=== PATIENT | male | born 1970 | race Two or more races ===

== ENCOUNTER 2019-12-07 09:20 | Emergency (ER) | payer MEDICAID, OTHER ==
[~2019-12-07] VITALS: Ht 170.2 cm; Wt 83.9 kg
[2019-12-07 10:14] VITALS: BP 146/98
== END 2019-12-07 10:51 | disposition home or self-care (01) ==
LOC: ER 09:20
DX: K21.9 Gastro-esophageal reflux disease without esophagitis (principal); I10 Essential (primary) hypertension; F17.210 Nicotine dependence, cigarettes, uncomplicated; Z76.0 Encounter for issue of repeat prescription

== ENCOUNTER 2019-12-27 10:13 | Emergency (ER) | payer MEDICAID ==
[~2019-12-27] VITALS: Ht 167.6 cm; Wt 83.5 kg
[2019-12-27 10:21] VITALS: BP 139/91
== END 2019-12-27 12:29 | disposition home or self-care (01) ==
LOC: ER 10:13
DX: G89.29 Other chronic pain (principal); M54.5 Low back pain; K21.9 Gastro-esophageal reflux disease without esophagitis; I10 Essential (primary) hypertension; F17.210 Nicotine dependence, cigarettes, uncomplicated; Z76.0 Encounter for issue of repeat prescription